=== PATIENT | female | born 2005 ===

== ENCOUNTER 2023-11-22 18:54 | Emergency (ER) | payer OTHER ==
[~2023-11-22] VITALS: Ht 165.1 cm; Wt 100.0 kg
[2023-11-22 18:56] VITALS: BP 142/75; PULSE 92; RESP 18; TEMP 98.5
[2023-11-22] MEDS: ACETAMINOPHEN 500 MG TABLET PO ONE (19:47)
[2023-11-22 19:56] LABS: COVID AG,FIA SOURCE NASAL SWAB
[2023-11-22 20:14] LABS: SARS-COV2 (COVID) ANTIGEN,FIA Negative (Negative)
[2023-11-22 20:16] LABS: INFLUENZA TYPE A NEGATIVE FOR TYPE A (NEGATIVE); INFLUENZA TYPE B NEGATIVE FOR TYPE B (NEGATIVE)
[2023-11-22 20:22] LABS: RAPID GROUP A STREP NEGATIVE (NEGATIVE)
[2023-11-22] MEDS ORDERED: ACET-3385 PO (20:26)
[2023-11-22] MEDS ORDERED: IBUP-1492 PO (20:26)
== END 2023-11-22 20:32 | disposition home or self-care (01) ==
LOC: EMS 18:54
DX: B34.9 Viral infection, unspecified (principal); Z20.822 Contact with and (suspected) exposure to COVID-19
CPT/HCPCS: 87430; 87804; 99283